=== PATIENT | male | born 1970 | race Caucasian/White ===

== ENCOUNTER 2020-12-03 12:33 | Emergency (ER) | payer MEDICAID ==
[~2020-12-03] VITALS: Ht 172.7 cm; Wt 69.9 kg
[2020-12-03 12:44] VITALS: BP 167/89
--- NOTE | 2020-12-03 12:54 | NUR ---
Patient given discharge instructions and Rx, they have confirmed that they understand the instructions. Patient ambulatory with steady gait.
[2020-12-03] MEDS ORDERED: IBUPROFEN 600 MG TABLET ONE (12:55)
[2020-12-03] MEDS ORDERED: IBUPROFEN 600 MG TABLET PO ONE (13:00)
== END 2020-12-03 13:07 | disposition home or self-care (01) ==
LOC: ED 13:01
DX: K08.89 Other specified disorders of teeth and supporting structures (principal)
CPT/HCPCS: 99283